=== PATIENT | male | born 1980 | race Caucasian/White ===

== ENCOUNTER 2017-03-31 13:17 | Inpatient (IN) | payer MEDICAID ==
[~2017-03-31] VITALS: Ht 167.6 cm; Wt 79.9 kg
[2017-03-31 14:21] LABS: BASOPHIL % 0.4 % (0-2); PLATELET COUNT 293 x10^3mcL (130-400); RED CELL DISTRIBUTION WIDTH 13.5 % (11.5-14.5)
[2017-03-31 14:26] LABS: CALCIUM 8.7 mg/dL (8.5-10.1); CARBON DIOXIDE 27.7 mmol/L (21-32); CHLORIDE SERUM 102 mmol/L (98-107); CREATININE SERUM 0.9 mg/dL (0.7-1.3); GFR1 > 60 mL/min; GLUCOSE SERUM 172 mg/dL (74-106); SODIUM SERUM 138 mmol/L (136-145)
[2017-03-31 14:31] LABS: ALBUMIN 3.8 g/dL (3.4-5.0); ALKALINE PHOSPHATASE 89 U/L (46-116); ALT/SGPT 110 U/L (16-63); AST/SGOT 37 U/L (15-37); BILIRUBIN TOTAL 0.5 mg/dL (0.20-1.00); TOTAL PROTEIN, SERUM 7.8 g/dL (6.4-8.2)
[2017-03-31 14:40] LABS: UA SPECIFIC GRAVITY 1.015 (1.005-1.035); microscopic required? YES; urine erythrocyte 1+ (NEGATIVE)
[2017-03-31 14:47] LABS: AMPHETAMINE QUAL UR NONE DETECTED (NEG <=1000)
[2017-03-31] MEDS ORDERED: LISINOPRIL2.5 MG PO (15:46)
[2017-03-31] MEDS ORDERED: METFORMIN HCL1000 MG PO (15:46)
[2017-03-31] MEDS ORDERED: GEMFIBROZIL600 MG PO (15:46)
[2017-03-31 16:39] VITALS: BP 122/77
[2017-03-31 17:04] LABS: MAGNESIUM 1.9 mg/dL (1.8-2.4); PHOSPHOROUS 3.2 mg/dL (2.5-4.9)
[2017-03-31 17:06] LABS: T3 TOTAL 1.17 ng/mL
[2017-03-31 17:11] LABS: FREE T4 1.09 ng/dL (0.76-1.46); FREE THYROXINE INDEX 2.6 ug/dL (1.4-4.5); T4(THYROXINE) 7.3 ug/dL (4.7-13.3)
[2017-03-31 19:33] VITALS: BP 140/65
[2017-03-31 21:11] VITALS: BP 112/66
[2017-03-31 21:12] VITALS: BP 112/66
[2017-04-01 04:56] LABS: BASOPHIL % 0.4 % (0-2); PLATELET COUNT 275 x10^3mcL (130-400); RED CELL DISTRIBUTION WIDTH 13.9 % (11.5-14.5)
[2017-04-01 05:04] LABS: CALCIUM 8.1 mg/dL (8.5-10.1); CHLORIDE SERUM 104 mmol/L (98-107); GFR1 > 60 mL/min; GLUCOSE SERUM 171 mg/dL (74-106); POTASSIUM SERUM 4.2 mmol/L (3.5-5.1); SODIUM SERUM 139 mmol/L (136-145)
[2017-04-01 05:28] VITALS: BP 104/53
[2017-04-01 08:41] VITALS: BP 104/53
[2017-04-01] MEDS ORDERED: LIPI10 PO (08:53)
[2017-04-01] MEDS ORDERED: PRI20 PO (08:53)
[2017-04-01] MEDS ORDERED: ASPIR 8181 MG PO (08:55)
[2017-04-01 09:26] VITALS: BP 96/57
== END 2017-04-01 10:56 | disposition home or self-care (01) | DRG 243 ==
LOC: ED 13:17 → DU 15:52
PROVIDERS: Emergency Medicine; ADMIT Family Medicine
DX: K21.9 Gastro-esophageal reflux disease without esophagitis (principal); D68.69 Other thrombophilia; E11.59 Type 2 diabetes mellitus with other circulatory complications; E11.65 Type 2 diabetes mellitus with hyperglycemia; E83.51 Hypocalcemia; I16.0 Hypertensive urgency; R31.9 Hematuria, unspecified; E78.5 Hyperlipidemia, unspecified; Z79.84 Long term (current) use of oral hypoglycemic drugs; Z68.29 Body mass index [BMI] 29.0-29.9, adult
CPT/HCPCS: 82962; 83880; 84439; J2270; J2405; J7030; Q0092

== ENCOUNTER 2017-04-20 16:15 | Observation (INO) | payer MEDICAID ==
[~2017-04-20] VITALS: Ht 172.7 cm; Wt 89.5 kg
[~2017-04-20 16:15] MED LIST: ASPIR 8181 MG PO; GEMFIBROZIL600 MG PO; LIPI10 PO; METFORMIN HCL1000 MG PO; PRI20 PO
[2017-04-20 19:10] LABS: BASOPHIL % 0.4 % (0-2); PLATELET COUNT 309 x10^3mcL (130-400); RED CELL DISTRIBUTION WIDTH 13.5 % (11.5-14.5)
[2017-04-20 19:12] LABS: CALCIUM 8.8 mg/dL (8.5-10.1); CARBON DIOXIDE 30.3 mmol/L (21-32); CHLORIDE SERUM 103 mmol/L (98-107); CREATININE SERUM 0.8 mg/dL (0.7-1.3); GFR1 > 60 mL/min; GLUCOSE SERUM 132 mg/dL (74-106); POTASSIUM SERUM 3.5 mmol/L (3.5-5.1); SODIUM SERUM 140 mmol/L (136-145)
[2017-04-20 19:16] LABS: ALBUMIN 3.8 g/dL (3.4-5.0); ALKALINE PHOSPHATASE 88 U/L (46-116); ALT/SGPT 65 U/L (16-63); AST/SGOT 24 U/L (15-37); BILIRUBIN TOTAL 0.5 mg/dL (0.20-1.00); TOTAL PROTEIN, SERUM 7.7 g/dL (6.4-8.2)
[2017-04-20] MEDS ORDERED: METFORMIN HCL1000 MG PO (20:51)
[2017-04-20] MEDS ORDERED: LISINOPRIL2.5 MG PO (20:51)
[2017-04-20 21:29] VITALS: BP 138/94
[2017-04-20 21:38] LABS: CHOLESTEROL/HDL RATIO 3.5; MAGNESIUM 1.7 mg/dL (1.8-2.4); PHOSPHOROUS 3.4 mg/dL (2.5-4.9)
[2017-04-20 21:50] LABS: T3 TOTAL 0.93 ng/mL
[2017-04-20 21:52] LABS: FREE T4 1.11 ng/dL (0.76-1.46); FREE THYROXINE INDEX 2.7 ug/dL (1.4-4.5); T4(THYROXINE) 7.8 ug/dL (4.7-13.3)
[2017-04-21 03:07] LABS: BASOPHIL % 0.5 % (0-2); PLATELET COUNT 270 x10^3mcL (130-400); RED CELL DISTRIBUTION WIDTH 13.6 % (11.5-14.5)
[2017-04-21 03:21] LABS: CALCIUM 8.4 mg/dL (8.5-10.1); CARBON DIOXIDE 29.9 mmol/L (21-32); CHLORIDE SERUM 101 mmol/L (98-107); CREATININE SERUM 1.1 mg/dL (0.7-1.3); GFR1 > 60 mL/min; GLUCOSE SERUM 217 mg/dL (74-106); MAGNESIUM 1.7 mg/dL (1.8-2.4); POTASSIUM SERUM 3.2 mmol/L (3.5-5.1); SODIUM SERUM 127 mmol/L (136-145)
[2017-04-21 05:45] VITALS: BP 116/83
[2017-04-21 08:55] VITALS: BP 131/79
[2017-04-21 10:36] LABS: UA SPECIFIC GRAVITY 1.015 (1.005-1.035); microscopic required? YES; urine erythrocyte TRACE (NEGATIVE)
[2017-04-21 10:47] LABS: AMPHETAMINE QUAL UR NONE DETECTED (NEG <=1000)
[2017-04-21 13:00] VITALS: BP 124/84
[2017-04-21 16:37] LABS: CALCIUM 8.3 mg/dL (8.5-10.1); CARBON DIOXIDE 27.3 mmol/L (21-32); CHLORIDE SERUM 104 mmol/L (98-107); CREATININE SERUM 0.8 mg/dL (0.7-1.3); GFR1 > 60 mL/min; GLUCOSE SERUM 186 mg/dL (74-106); POTASSIUM SERUM 3.7 mmol/L (3.5-5.1); SODIUM SERUM 138 mmol/L (136-145)
[2017-04-21 16:57] VITALS: BP 126/82
[2017-04-21] MEDS ORDERED: METOPROLOL TART25 M1 PO (16:58)
[2017-04-21 17:26] VITALS: BP 126/82
[2017-04-21] MEDS ORDERED: LISINOPRIL2.5 MG PO (17:35)
== END 2017-04-21 18:19 | disposition home or self-care (01) | DRG 243 ==
LOC: ED 16:15 → DU 20:42
PROVIDERS: Family Medicine Sports Medicine; Student in an Organized Health Care Education/Training Program; ADMIT Student in an Organized Health Care Education/Training Program
DX: K21.9 Gastro-esophageal reflux disease without esophagitis (principal); D68.69 Other thrombophilia; E11.59 Type 2 diabetes mellitus with other circulatory complications; E11.65 Type 2 diabetes mellitus with hyperglycemia; E87.1 Hypo-osmolality and hyponatremia; E83.51 Hypocalcemia; I10 Essential (primary) hypertension; E87.6 Hypokalemia; E83.42 Hypomagnesemia; E78.5 Hyperlipidemia, unspecified; Z79.82 Long term (current) use of aspirin; Z68.37 Body mass index [BMI] 37.0-37.9, adult
CPT/HCPCS: 82962; 83880; 84439; G0378; J7030; Q0092

== ENCOUNTER 2017-05-17 22:33 | Emergency (ER) | payer SELFPAY ==
[~2017-05-17 22:33] MED LIST changes: +LISINOPRIL2.5 MG PO; +METOPROLOL TART25 M1 PO
[2017-05-18 00:24] LABS: BASOPHIL % 0.5 % (0-2); PLATELET COUNT 282 x10^3mcL (130-400); RED CELL DISTRIBUTION WIDTH 13.3 % (11.5-14.5)
[2017-05-18 00:31] LABS: CALCIUM 8.4 mg/dL (8.5-10.1); CARBON DIOXIDE 29.2 mmol/L (21-32); CHLORIDE SERUM 101 mmol/L (98-107); CREATININE SERUM 1.1 mg/dL (0.7-1.3); GFR1 > 60 mL/min; GLUCOSE SERUM 212 mg/dL (74-106); SODIUM SERUM 139 mmol/L (136-145)
[2017-05-18 00:37] LABS: ALBUMIN 3.5 g/dL (3.4-5.0); ALKALINE PHOSPHATASE 94 U/L (46-116); ALT/SGPT 70 U/L (16-63); AST/SGOT 20 U/L (15-37); BILIRUBIN TOTAL 0.3 mg/dL (0.20-1.00); TOTAL PROTEIN, SERUM 7.4 g/dL (6.4-8.2)
[2017-05-18 02:55] LABS: AMYLASE 66 U/L (25-115); CHOLESTEROL 158 mg/dL (<200); LIPASE 207 IU/L (73-393); MAGNESIUM 1.7 mg/dL (1.8-2.4); PHOSPHOROUS 2.9 mg/dL (2.5-4.9)
[2017-05-18 03:02] LABS: CHOLESTEROL/HDL RATIO 5.6; HDL CHOLESTEROL 28 mg/dL (40-60); TRIGLYCERIDES 538 mg/dL (<150)
[2017-05-18 03:38] LABS: FREE T4 0.99 ng/dL (0.76-1.46); FREE THYROXINE INDEX 2.9 ug/dL (1.4-4.5); T4(THYROXINE) 7.6 ug/dL (4.7-13.3)
[2017-05-18 05:48] LABS: microscopic required? YES; urine erythrocyte TRACE (NEGATIVE)
[2017-05-18 05:57] LABS: AMPHETAMINE QUAL UR NONE DETECTED (NEG <=1000)
[2017-05-18 12:05] VITALS: BP 137/100
[2017-05-18 15:59] LABS: T3 TOTAL 1.27 ng/mL
== END 2017-05-18 12:05 | disposition home or self-care (01) ==
LOC: ED 22:33
PROVIDERS: Emergency Medicine; Student in an Organized Health Care Education/Training Program
DX: T78.3XXA Angioneurotic edema, initial encounter (principal); I10 Essential (primary) hypertension; E11.9 Type 2 diabetes mellitus without complications; E78.00 Pure hypercholesterolemia, unspecified
CPT/HCPCS: 82962; 83880; 84439; J1200; J2930; J7030; Q0092

== ENCOUNTER 2017-10-28 15:45 | Inpatient (IN) | payer MEDICAID ==
[~2017-10-28] VITALS: Ht 167.6 cm; Wt 80.1 kg
[2017-10-28 15:49] VITALS: Ht 167.6 cm; Wt 80.1 kg
[2017-10-28 17:16] LABS: BASOPHIL % 0.4 % (0-2); PLATELET COUNT 289 x10^3mcL (130-400); RED CELL DISTRIBUTION WIDTH 13.2 % (11.5-14.5)
[2017-10-28 17:31] LABS: CALCIUM 7.5 mg/dL (8.5-10.1); CARBON DIOXIDE 23.7 mmol/L (21-32); CHLORIDE SERUM 100 mmol/L (98-107); CREATININE SERUM 0.8 mg/dL (0.7-1.3); GFR1 > 60 mL/min; GLUCOSE SERUM 189 mg/dL (74-106); POTASSIUM SERUM 3.3 mmol/L (3.5-5.1); SODIUM SERUM 135 mmol/L (136-145)
[2017-10-28] MEDS ORDERED: GEMFIBROZIL600 MG (17:39)
[2017-10-28] MEDS ORDERED: METFORMIN HCL1000 MG PO ×2 (17:39→18:38)
[2017-10-28] MEDS ORDERED: METOPROLOL TART25 M1 PO ×2 (17:40→18:38)
[2017-10-28 17:43] LABS: ALBUMIN 3.5 g/dL (3.4-5.0); ALKALINE PHOSPHATASE 83 U/L (46-116); BILIRUBIN TOTAL 0.52 mg/dL (0.20-1.00)
[2017-10-28 17:59] LABS: UA SPECIFIC GRAVITY <=1.005 (1.005-1.035); microscopic required? YES; urine erythrocyte TRACE (NEGATIVE)
[2017-10-28 18:11] LABS: AMPHETAMINE QUAL UR NONE DETECTED (NEG <=1000)
[2017-10-28 18:14] LABS: TOTAL PROTEIN, SERUM 7.1 g/dL (6.4-8.2)
[2017-10-28 18:19] LABS: ALT/SGPT 101 U/L (16-63); AST/SGOT 97 U/L (15-37)
[2017-10-28 18:23] LABS: T3 TOTAL 1.01 ng/mL
[2017-10-28 18:56] LABS: CHOLESTEROL 198 mg/dL (<200); MAGNESIUM 1.6 mg/dL (1.8-2.4); PHOSPHOROUS 2.7 mg/dL (2.5-4.9)
[2017-10-28 18:58] LABS: CHOLESTEROL/HDL RATIO 8.3; HDL CHOLESTEROL 24 mg/dL (40-60); TRIGLYCERIDES 1331 mg/dL (<150)
[2017-10-28 18:59] LABS: FREE T4 1.09 ng/dL (0.76-1.46); FREE THYROXINE INDEX 3.1 ug/dL (1.4-4.5); T4(THYROXINE) 8.4 ug/dL (4.7-13.3)
[2017-10-28 19:02] VITALS: BP 139/73
[2017-10-28 21:48] VITALS: BP 138/85
[2017-10-29 05:53] VITALS: BP 124/64
[2017-10-29 06:14] LABS: BASOPHIL % 0.5 % (0-2); PLATELET COUNT 292 x10^3mcL (130-400); RED CELL DISTRIBUTION WIDTH 13.2 % (11.5-14.5)
[2017-10-29 06:42] LABS: CARBON DIOXIDE 27.1 mmol/L (21-32); CHLORIDE SERUM 105 mmol/L (98-107); CREATININE SERUM 0.8 mg/dL (0.7-1.3); GFR1 > 60 mL/min; GLUCOSE SERUM 163 mg/dL (74-106); MAGNESIUM 2.2 mg/dL (1.8-2.4); PHOSPHOROUS 2.7 mg/dL (2.5-4.9); POTASSIUM SERUM 4.2 mmol/L (3.5-5.1); SODIUM SERUM 138 mmol/L (136-145)
[2017-10-29 09:22] VITALS: BP 119/69
[2017-10-29 13:10] VITALS: BP 133/86
[2017-10-29] MEDS ORDERED: ECO81 PO (14:29)
[2017-10-29] MEDS ORDERED: METOPROLOL TART25 M1 PO (14:42)
[2017-10-29] MEDS ORDERED: LIPI10 PO (14:42)
[2017-10-29 16:16] VITALS: BP 133/86
== END 2017-10-29 17:01 | disposition home or self-care (01) | DRG 243 ==
LOC: ED 15:45 → DU 17:19
PROVIDERS: Emergency Medicine; Family Medicine
DX: K21.9 Gastro-esophageal reflux disease without esophagitis (principal); E83.42 Hypomagnesemia; I10 Essential (primary) hypertension; M94.0 Chondrocostal junction syndrome [Tietze]; E11.9 Type 2 diabetes mellitus without complications; Z83.3 Family history of diabetes mellitus; E78.2 Mixed hyperlipidemia; E87.6 Hypokalemia
CPT/HCPCS: 76770; 82962; 83880; 84439; J3010; J3475; J7030; Q0092

== ENCOUNTER 2018-09-02 21:50 | Emergency (ER) | payer SELFPAY ==
[~2018-09-02] VITALS: Ht 167.6 cm; Wt 83.6 kg
[~2018-09-02 21:50] MED LIST changes: +ECO81 PO; +GEMFIBROZIL600 MG
[2018-09-02 21:58] VITALS: Ht 167.6 cm; Wt 83.6 kg
[2018-09-03 00:10] LABS: UA SPECIFIC GRAVITY 1.025 (1.005-1.035); microscopic required? YES; urine erythrocyte TRACE (NEGATIVE)
[2018-09-03 00:15] LABS: BASOPHIL % 0.2 % (0-2); PLATELET COUNT 252 x10^3mcL (130-400); RED CELL DISTRIBUTION WIDTH 13.3 % (11.5-14.5)
[2018-09-03 00:18] LABS: CALCIUM 8.3 mg/dL (8.5-10.1); CARBON DIOXIDE 27.4 mmol/L (21-32); CHLORIDE SERUM 100 mmol/L (98-107); CREATININE SERUM 0.9 mg/dL (0.7-1.3); GFR1 > 60 mL/min; GLUCOSE SERUM 248 mg/dL (74-106); POTASSIUM SERUM 3.6 mmol/L (3.5-5.1); SODIUM SERUM 138 mmol/L (136-145)
[2018-09-03 00:20] LABS: AMPHETAMINE QUAL UR NONE DETECTED (See below)
[2018-09-03 00:34] LABS: ALBUMIN 3.5 g/dL (3.4-5.0); ALKALINE PHOSPHATASE 94 U/L (46-116); BILIRUBIN TOTAL 0.4 mg/dL (0.20-1.00); FREE T4 1.02 ng/dL (0.76-1.46); TOTAL PROTEIN, SERUM 7.5 g/dL (6.4-8.2)
[2018-09-03 00:44] LABS: ALT/SGPT 85 U/L (16-63); AST/SGOT 57 U/L (15-37)
[2018-09-03 01:50] VITALS: BP 125/87
== END 2018-09-03 01:50 | disposition home or self-care (01) ==
LOC: ED 21:50
PROVIDERS: Emergency Medicine
DX: I10 Essential (primary) hypertension (principal); E11.65 Type 2 diabetes mellitus with hyperglycemia; E78.00 Pure hypercholesterolemia, unspecified
CPT/HCPCS: 82962; 84439; J7030

== ENCOUNTER 2018-09-06 21:42 | Emergency (ER) | payer SELFPAY ==
[~2018-09-06] VITALS: Ht 167.6 cm; Wt 84.8 kg
[2018-09-06 21:49] VITALS: Ht 167.6 cm; Wt 84.8 kg
[2018-09-07 01:11] LABS: BASOPHIL % 0.5 % (0-2); PLATELET COUNT 289 x10^3mcL (130-400); RED CELL DISTRIBUTION WIDTH 13.3 % (11.5-14.5)
[2018-09-07 01:35] LABS: CARBON DIOXIDE 28.1 mmol/L (21-32); CHLORIDE SERUM 100 mmol/L (98-107); CREATININE SERUM 0.9 mg/dL (0.7-1.3); GFR1 > 60 mL/min; GLUCOSE SERUM 160 mg/dL (74-106); POTASSIUM SERUM 3.8 mmol/L (3.5-5.1); SODIUM SERUM 138 mmol/L (136-145)
[2018-09-07 02:39] VITALS: BP 140/90
== END 2018-09-07 02:39 | disposition home or self-care (01) ==
LOC: ED 21:42
PROVIDERS: Emergency Medicine
DX: I10 Essential (primary) hypertension (principal); E11.9 Type 2 diabetes mellitus without complications; E78.00 Pure hypercholesterolemia, unspecified
CPT/HCPCS: 36415

== ENCOUNTER 2018-09-07 05:50 | Emergency (ER) | payer SELFPAY ==
[~2018-09-07] VITALS: Ht 167.6 cm; Wt 80.7 kg
[2018-09-07 05:52] VITALS: Ht 167.6 cm; Wt 80.7 kg
[2018-09-07 07:11] LABS: CALCIUM 8.9 mg/dL (8.5-10.1); MAGNESIUM 1.6 mg/dL (1.8-2.4)
[2018-09-07 07:42] LABS: AMPHETAMINE QUAL UR NONE DETECTED (See below)
[2018-09-07 08:44] VITALS: BP 115/76
== END 2018-09-07 08:44 | disposition home or self-care (01) ==
LOC: ED 05:50
PROVIDERS: Emergency Medicine
DX: I16.0 Hypertensive urgency (principal); F41.9 Anxiety disorder, unspecified; E11.65 Type 2 diabetes mellitus with hyperglycemia; E78.00 Pure hypercholesterolemia, unspecified
CPT/HCPCS: 82962